=== PATIENT | female | born 1980 | race Caucasian/White ===

== ENCOUNTER → 2020-10-19 | Outpatient (CLI) | payer BC ==
[2020-10-19 16:01] LABS: BUN/CREATININE RATIO 26 (0-10)
== END ==
LOC: LAB 15:05
PROVIDERS: Internal Medicine
DX: E87.5 Hyperkalemia (principal)
CPT/HCPCS: 36415; 80048

== ENCOUNTER → 2021-09-22 | Outpatient (CLI) | payer BC | LOC: KOH-I 16:20 | DX: M25.541 Pain in joints of right hand (principal); M25.542 Pain in joints of left hand; M79.671 Pain in right foot; M79.672 Pain in left foot | CPT/HCPCS: 73130; 73630 ==

== ENCOUNTER → 2022-01-15 | Outpatient (CLI) | payer BC | LOC: KOH-I 01-10 09:30 | DX: M79.671 Pain in right foot (principal); M77.31 Calcaneal spur, right foot | CPT/HCPCS: 73718 ==